=== PATIENT | female | born 1985 | race Caucasian/White ===

== ENCOUNTER → 2025-05-03 | Outpatient (CLI) | payer OTHER | LOC: M WHC 10:30 | PROVIDERS: ATTEND Obstetrics & Gynecology | DX: Z12.31 Encounter for screening mammogram for malignant neoplasm of breast (principal) ==

== ENCOUNTER → 2025-05-12 | Outpatient (CLI) | payer OTHER | LOC: M WHC 12:42 | PROVIDERS: ATTEND Obstetrics & Gynecology | DX: R92.2 Inconclusive mammogram (principal); N63.14 Unspecified lump in the right breast, lower inner quadrant ==